=== PATIENT | female | born 1975 | race Caucasian/White ===

== ENCOUNTER 2017-05-23 13:42 | Outpatient (CLI) | payer OTHER ==
[2017-05-23 14:31] LABS: ADD UMIC YES; UR ASCORBIC ACID NEGATIVE (NEGATIVE); UR BACTERIA FEW /HPF (NONE SEEN); UR BILIRUBIN (Dip) NEGATIVE (NEGATIVE); UR BLOOD (Dip) 1+ mg/dL (NEGATIVE); UR CLARITY CLEAR (CLEAR); UR COLOR YELLOW (YELLOW); UR GLUCOSE (Dip) NEGATIVE (NEGATIVE); UR KETONES (Dip) NEGATIVE (NEGATIVE); UR LEUKOCYTE ESTERASE (Dip) NEGATIVE Leu/ul (NEGATIVE); UR NITRITE (Dip) NEGATIVE (NEGATIVE); UR RBC 1 /HPF (0-5); UR SPECIFIC GRAVITY (Dip) 1.005 (1.003-1.030); UR SQUAMOUS EPITHELIAL CELL FEW /HPF (FEW); UR TOTAL PROTEIN (Dip) NEGATIVE (NEGATIVE); UR UROBILINOGEN (Dip) NEGATIVE (NEGATIVE); UR WBC 0 /HPF (0-5)
[2017-05-23 16:34] LABS: ADD MAN DIFF? NO
[2017-05-23 16:38] LABS: WHITE BLOOD COUNT 10.8 10^3/ul (4.8-10.8)
[2017-05-23 16:38] LABS: BASOPHILS % 0.2 % (0.0-2.0); EOSINOPHILS # 0.1 10^3/ul (0.0-0.5); EOSINOPHILS % 0.5 % (0.0-7.0); HEMATOCRIT 38.4 % (37.0-47.0); HEMOGLOBIN 13.3 g/dl (12.0-16.0); LYMPHOCYTES # 1.3 10^3/ul (0.8-2.9); LYMPHOCYTES % 12.4 % (15.0-51.0); MEAN CORPUSCULAR HEMOGLOBIN 32.8 pg (29.0-33.0); MEAN CORPUSCULAR HGB CONC 34.6 g/dl (32.0-37.0); MEAN CORPUSCULAR VOLUME 94.6 fl (82.0-101.0); MEAN PLATELET VOLUME 9.5 fl (7.4-10.4); MONOCYTE # 0.6 10^3/ul (0.3-0.9); MONOCYTES % 5.6 % (0.0-11.0); NEUTROPHIL # 8.7 10^3/ul (1.6-7.5); NEUTROPHILS % 80.5 % (39.0-77.0); PLATELET COUNT 211 10^3/UL (140-415); RED BLOOD COUNT 4.06 10^6/ul (4.20-5.40); RED CELL DISTRIBUTION WIDTH 12.4 % (11.5-14.5)
== END 2017-05-23 17:25 | disposition home or self-care (01) ==
LOC: OBT 13:42 → L-D 13:43 → OBT 17:25
DX: O26.892 Other specified pregnancy related conditions, second trimester (principal); R10.9 Unspecified abdominal pain; O34.219 Maternal care for unspecified type scar from previous cesarean delivery; O09.523 Supervision of elderly multigravida, third trimester; Z3A.27 27 weeks gestation of pregnancy
CPT/HCPCS: 36415; 76817; 76818; 81001; 85025

== ENCOUNTER 2017-08-03 14:55 | Inpatient (IN) | payer OTHER ==
[2017-08-03 16:00] LABS: ADD MAN DIFF? NO
[2017-08-03 16:02] LABS: BASOPHILS % 0.2 % (0.0-2.0); EOSINOPHILS # 0.1 10^3/ul (0.0-0.5); EOSINOPHILS % 0.8 % (0.0-7.0); HEMATOCRIT 36.9 % (37.0-47.0); HEMOGLOBIN 13.1 g/dl (12.0-16.0); LYMPHOCYTES # 1.4 10^3/ul (0.8-2.9); LYMPHOCYTES % 16.4 % (15.0-51.0); MEAN CORPUSCULAR HEMOGLOBIN 32.8 pg (29.0-33.0); MEAN CORPUSCULAR HGB CONC 35.5 g/dl (32.0-37.0); MEAN CORPUSCULAR VOLUME 92.5 fl (82.0-101.0); MEAN PLATELET VOLUME 10.4 fl (7.4-10.4); MONOCYTE # 0.9 10^3/ul (0.3-0.9); MONOCYTES % 9.9 % (0.0-11.0); NEUTROPHIL # 6.2 10^3/ul (1.6-7.5); NEUTROPHILS % 71.8 % (39.0-77.0); PLATELET COUNT 186 10^3/UL (140-415); RED BLOOD COUNT 3.99 10^6/ul (4.20-5.40); RED CELL DISTRIBUTION WIDTH 12.5 % (11.5-14.5)
[2017-08-03 16:02] LABS: WHITE BLOOD COUNT 8.6 10^3/ul (4.8-10.8)
[2017-08-03 16:25] LABS: ADD UMIC YES; UR ASCORBIC ACID NEGATIVE (NEGATIVE); UR BACTERIA FEW /HPF (NONE SEEN); UR BILIRUBIN (Dip) NEGATIVE (NEGATIVE); UR BLOOD (Dip) 1+ mg/dL (NEGATIVE); UR CLARITY CLEAR (CLEAR); UR COLOR STRAW (YELLOW); UR GLUCOSE (Dip) NEGATIVE (NEGATIVE); UR KETONES (Dip) NEGATIVE (NEGATIVE); UR LEUKOCYTE ESTERASE (Dip) NEGATIVE Leu/ul (NEGATIVE); UR NITRITE (Dip) NEGATIVE (NEGATIVE); UR RBC 1 /HPF (0-5); UR SPECIFIC GRAVITY (Dip) 1.004 (1.003-1.030); UR SQUAMOUS EPITHELIAL CELL FEW /HPF (FEW); UR TOTAL PROTEIN (Dip) NEGATIVE (NEGATIVE); UR UROBILINOGEN (Dip) NEGATIVE (NEGATIVE); UR WBC 0 /HPF (0-5)
[2017-08-03 16:28] LABS: ALANINE AMINOTRANSFERASE 26 IU/L (13-69); ALBUMIN 3.2 g/dl (3.3-4.9); ALKALINE PHOSPHATASE 110 IU/L (42-121); ANION GAP 11 (8-16); ASPARTATE AMINO TRANSFERASE 24 IU/L (15-46); BLOOD UREA NITROGEN 11 mg/dl (7-20); CARBON DIOXIDE 25 mmol/L (21-31); CHLORIDE 105 mmol/L (97-110); CREATININE 0.54 mg/dl (0.44-1.00); GLUCOSE 84 mg/dl (70-220); POTASSIUM 3.8 mmol/L (3.5-5.1); SODIUM 137 mmol/L (135-144); TOTAL PROTEIN 6.4 g/dl (6.1-8.1); URIC ACID 3.7 mg/dl (3.1-7.9)
[2017-08-03] MEDS: LACTATED RINGER'S 1,000 ML IV ×3 (17:29→23:59)
[2017-08-03] MEDS: TERBUTALINE 1 MG/ML INJ SC (19:12)
[2017-08-03] MEDS: ACETAMINOPHEN 325 MG TAB PO (20:11)
[2017-08-03] MEDS ORDERED: OXYTOCIN 30 UNITS/LR 500 ML IV (23:00)
[2017-08-03] MEDS ORDERED: MISOPROSTOL 200 MCG TAB PR (23:00)
[2017-08-03] MEDS ORDERED: METHYLERGONOVINE 0.2 MG INJ IM (23:00)
[2017-08-03] MEDS ORDERED: CARBOPROST 250 MCG INJ IM (23:00)
[2017-08-04 00:05] LABS: INR 0.93; PROTIME 12.6 Sec (11.9-14.9)
[2017-08-04 00:06] LABS: PARTIAL THROMBOPLASTIN TIME 31.6 Sec (25.0-35.0)
[2017-08-04 00:39] LABS: HEPATITIS B SURFACE ANTIGEN NEGATIVE (NEGATIVE)
[2017-08-04] MEDS: ACETAMINOPHEN 325 MG TAB PO (04:08)
[2017-08-04] MEDS: LACTATED RINGER'S 1,000 ML IV ×2 (07:52→20:11)
[2017-08-04] MEDS ORDERED: CEFAZOLIN 2 GM/50 ML (PMX) 50 ML IV (09:00)
[2017-08-04] MEDS: AMPICILLIN 2 GM/NS (PMX) 100 ML IV (09:12)
[2017-08-04] MEDS: AMPICILLIN 1 GM/NS (PMX) 50 ML IV (13:06)
[2017-08-04] MEDS ORDERED: OXYTOCIN 30 UNITS/LR 500 ML IV ×2 (15:43→18:30)
[2017-08-04] MEDS ORDERED: EPHEDrine SULFATE 50 MG/5 ML SYG (15:43)
[2017-08-04] MEDS ORDERED: METOCLOPRAMIDE 10 MG INJ (15:44)
[2017-08-04] MEDS ORDERED: ONDANSETRON 4 MG INJ (15:44)
[2017-08-04] MEDS ORDERED: morphine SULFATE/PF (10 MG/10 ML) INJ (15:44)
[2017-08-04] MEDS ORDERED: OXYTOCIN 10 UNIT INJ (15:44)
[2017-08-04] MEDS: OXYTOCIN 30 UNITS/LR 500 ML IV (17:15)
[2017-08-04] MEDS ORDERED: ONDANSETRON 4 MG INJ IV (18:00)
[2017-08-04] MEDS ORDERED: NALOXONE (0.4 MG/ML) INJ IV (18:00)
[2017-08-04] MEDS: morphine SULFATE/PF (10 MG/10 ML) INJ SPINAL (18:00)
[2017-08-04] MEDS ORDERED: EPHEDrine SULFATE 50 MG/5 ML SYG IV (18:00)
[2017-08-04] MEDS ORDERED: morphine 2 MG INJ IV ×2 (18:00)
[2017-08-04] MEDS ORDERED: NA PHOSPHATE/BIPHOS 133 ML ENEMA PR (18:30)
[2017-08-04] MEDS ORDERED: CARBOPROST 250 MCG INJ IM (18:30)
[2017-08-04] MEDS ORDERED: MISOPROSTOL 200 MCG TAB PR (18:30)
[2017-08-04] MEDS ORDERED: LANOLIN 7 GM TUBE TOP (18:30)
[2017-08-04] MEDS ORDERED: METHYLERGONOVINE 0.2 MG INJ IM (18:30)
[2017-08-04 19:31] LABS: RAPID PLASMA REAGIN NONREACTIVE (NR)
[2017-08-04] MEDS: CEFAZOLIN 2 GM/50 ML (PMX) 50 ML IV (20:57)
[2017-08-04] MEDS: SENNA/DOCUSATE NA (8.6MG/50MG) TAB PO (20:57)
[2017-08-04] MEDS: IBUPROFEN 800 MG TAB PO (22:00)
[2017-08-04] MEDS: DIPHENHYDRAMINE 50 MG INJ IV (22:51)
[2017-08-04] MEDS: CLINDAMYCIN 300 MG CAP PO (23:53)
[2017-08-05] MEDS: KETOROLAC 30 MG INJ IV (01:36)
[2017-08-05] MEDS: LACTATED RINGER'S 1,000 ML IV ×3 (04:17→22:50)
[2017-08-05] MEDS: CEFAZOLIN 2 GM/50 ML (PMX) 50 ML IV ×2 (05:01→13:10)
[2017-08-05] MEDS: DIPHENHYDRAMINE 50 MG INJ IV (05:01)
[2017-08-05] MEDS: CLINDAMYCIN 300 MG CAP PO ×3 (05:54→17:38)
[2017-08-05] MEDS: IBUPROFEN 800 MG TAB PO ×3 (05:55→21:50)
[2017-08-05] MEDS: NACL 3% FOR INHALATION 15 ML NEBU NEB ×2 (08:13→16:52)
[2017-08-05] MEDS: SENNA/DOCUSATE NA (8.6MG/50MG) TAB PO ×2 (09:00→21:00)
[2017-08-05] MEDS: BISACODYL 10 MG SUPP PR (10:00)
[2017-08-05 10:42] LABS: ADD MAN DIFF? NO
[2017-08-05 10:46] LABS: BASOPHILS % 0.1 % (0.0-2.0); EOSINOPHILS % 0.4 % (0.0-7.0); HEMATOCRIT 36.1 % (37.0-47.0); HEMOGLOBIN 12.6 g/dl (12.0-16.0); LYMPHOCYTES % 9.7 % (15.0-51.0); MEAN CORPUSCULAR HEMOGLOBIN 33.1 pg (29.0-33.0); MEAN CORPUSCULAR HGB CONC 34.9 g/dl (32.0-37.0); MEAN CORPUSCULAR VOLUME 94.8 fl (82.0-101.0); MEAN PLATELET VOLUME 10.6 fl (7.4-10.4); MONOCYTE # 0.9 10^3/ul (0.3-0.9); NEUTROPHIL # 8.1 10^3/ul (1.6-7.5); NEUTROPHILS % 80.3 % (39.0-77.0); PLATELET COUNT 187 10^3/UL (140-415); RED BLOOD COUNT 3.81 10^6/ul (4.20-5.40); RED CELL DISTRIBUTION WIDTH 12.7 % (11.5-14.5)
[2017-08-05 11:05] LABS: ALANINE AMINOTRANSFERASE 24 IU/L (13-69); ALBUMIN 2.9 g/dl (3.3-4.9); ALBUMIN/GLOBULIN RATIO 0.96; ALKALINE PHOSPHATASE 94 IU/L (42-121); ANION GAP 13 (8-16); ASPARTATE AMINO TRANSFERASE 28 IU/L (15-46); BILIRUBIN,INDIRECT 0.4 mg/dl (0-1.1); BILIRUBIN,TOTAL 0.4 mg/dl (0.2-1.3); BLOOD UREA NITROGEN 6 mg/dl (7-20); CALCIUM 8.9 mg/dl (8.4-10.2); CARBON DIOXIDE 26 mmol/L (21-31); CHLORIDE 103 mmol/L (97-110); CREATININE 0.57 mg/dl (0.44-1.00); GLUCOSE 101 mg/dl (70-220); POTASSIUM 4.2 mmol/L (3.5-5.1); SODIUM 138 mmol/L (135-144); TOTAL PROTEIN 5.9 g/dl (6.1-8.1)
[2017-08-05] MEDS: HYDROCODONE/APAP (5/325) TAB PO (20:26)
[2017-08-05] MEDS: ISONIAZID 300 MG TAB PO (20:27)
[2017-08-05] MEDS: ETHAMBUTOL 100 MG TAB PO (20:28)
[2017-08-05] MEDS: RIFAMPIN 300 MG CAP PO (20:30)
[2017-08-05] MEDS: PYRAZINAMIDE 500 MG TAB PO (21:49)
[2017-08-05] MEDS: PYRIDOXINE 50 MG TAB PO (21:50)
[2017-08-06] MEDS: BISACODYL 10 MG SUPP PR (00:49)
[2017-08-06] MEDS: CLINDAMYCIN 300 MG CAP PO ×3 (00:49→11:56)
[2017-08-06] MEDS: LACTATED RINGER'S 1,000 ML IV (02:04)
[2017-08-06] MEDS: NACL 3% FOR INHALATION 15 ML NEBU NEB (03:42)
[2017-08-06] MEDS: IBUPROFEN 800 MG TAB PO ×3 (06:39→21:22)
[2017-08-06 07:27] LABS: ADD MAN DIFF? NO
[2017-08-06 07:36] LABS: BASOPHILS % 0.3 % (0.0-2.0); EOSINOPHILS # 0.2 10^3/ul (0.0-0.5); EOSINOPHILS % 1.5 % (0.0-7.0); HEMATOCRIT 35.4 % (37.0-47.0); HEMOGLOBIN 12.3 g/dl (12.0-16.0); LYMPHOCYTES # 1.3 10^3/ul (0.8-2.9); LYMPHOCYTES % 13.1 % (15.0-51.0); MEAN CORPUSCULAR HEMOGLOBIN 32.9 pg (29.0-33.0); MEAN CORPUSCULAR HGB CONC 34.7 g/dl (32.0-37.0); MEAN CORPUSCULAR VOLUME 94.7 fl (82.0-101.0); MEAN PLATELET VOLUME 10.4 fl (7.4-10.4); MONOCYTE # 1.1 10^3/ul (0.3-0.9); MONOCYTES % 10.8 % (0.0-11.0); NEUTROPHIL # 7.3 10^3/ul (1.6-7.5); NEUTROPHILS % 73.7 % (39.0-77.0); PLATELET COUNT 176 10^3/UL (140-415); RED BLOOD COUNT 3.74 10^6/ul (4.20-5.40); RED CELL DISTRIBUTION WIDTH 12.5 % (11.5-14.5)
[2017-08-06 08:07] LABS: ALANINE AMINOTRANSFERASE 20 IU/L (13-69); ALBUMIN 2.9 g/dl (3.3-4.9); ALBUMIN/GLOBULIN RATIO 0.93; ALKALINE PHOSPHATASE 91 IU/L (42-121); ANION GAP 12 (8-16); ASPARTATE AMINO TRANSFERASE 27 IU/L (15-46); BILIRUBIN,INDIRECT 0.8 mg/dl (0-1.1); BILIRUBIN,TOTAL 0.8 mg/dl (0.2-1.3); BLOOD UREA NITROGEN 9 mg/dl (7-20); CALCIUM 8.6 mg/dl (8.4-10.2); CARBON DIOXIDE 30 mmol/L (21-31); CHLORIDE 103 mmol/L (97-110); GLUCOSE 95 mg/dl (70-220); POTASSIUM 3.6 mmol/L (3.5-5.1); SODIUM 141 mmol/L (135-144)
[2017-08-06] MEDS: SENNA/DOCUSATE NA (8.6MG/50MG) TAB PO ×2 (09:00→21:23)
[2017-08-06] MEDS: ETHAMBUTOL 100 MG TAB PO (09:09)
[2017-08-06] MEDS: ISONIAZID 300 MG TAB PO (09:09)
[2017-08-06] MEDS: PYRAZINAMIDE 500 MG TAB PO (09:10)
[2017-08-06] MEDS: RIFAMPIN 300 MG CAP PO (09:10)
[2017-08-06] MEDS: PYRIDOXINE 50 MG TAB PO (09:10)
[2017-08-06 12:32] LABS: NIL 0.02 IU/mL; QUANTIFERON(R)-TB GOLD POSITIVE (NEGATIVE); TB-NIL 1.92 IU/mL
[2017-08-06] MEDS: OXYCODONE/ACETAMINOPHEN (5/325) TAB PO (15:45)
[2017-08-06] MEDS: VORICONAZOLE 200 MG TAB PO (21:23)
[2017-08-07] MEDS: OXYCODONE/ACETAMINOPHEN (5/325) TAB PO (00:12)
[2017-08-07] MEDS: LACTATED RINGER'S 1,000 ML IV (02:04)
[2017-08-07] MEDS: IBUPROFEN 800 MG TAB PO ×3 (06:26→21:32)
[2017-08-07] MEDS: DIPHTH/TET/ACEL PERTUSS (ADULT) 0.5 ML VIAL IM* (09:00)
[2017-08-07] MEDS: MEASLES,MUMPS,RUBELLA VACCINE INJ SC* (09:00)
[2017-08-07] MEDS: SENNA/DOCUSATE NA (8.6MG/50MG) TAB PO ×2 (09:00→21:00)
[2017-08-07] MEDS: ISONIAZID 300 MG TAB PO (13:24)
[2017-08-07] MEDS: ETHAMBUTOL 100 MG TAB PO (13:24)
[2017-08-07] MEDS: PYRAZINAMIDE 500 MG TAB PO (13:25)
[2017-08-07] MEDS: RIFAMPIN 300 MG CAP PO (13:25)
[2017-08-07] MEDS: PYRIDOXINE 50 MG TAB PO (13:26)
[2017-08-07] MEDS: NACL 3% FOR INHALATION 15 ML NEBU NEB (20:00)
[2017-08-07] MEDS: HYDROCODONE/APAP (5/325) TAB PO (21:32)
[2017-08-08] MEDS: IBUPROFEN 800 MG TAB PO ×3 (06:08→22:00)
[2017-08-08] MEDS: NACL 3% FOR INHALATION 15 ML NEBU NEB (08:00)
[2017-08-08] MEDS: RIFAMPIN 300 MG CAP PO (08:30)
[2017-08-08] MEDS: SENNA/DOCUSATE NA (8.6MG/50MG) TAB PO ×2 (08:30→21:08)
[2017-08-08] MEDS: ETHAMBUTOL 100 MG TAB PO (08:30)
[2017-08-08] MEDS: ISONIAZID 300 MG TAB PO (08:30)
[2017-08-08] MEDS: PYRIDOXINE 50 MG TAB PO (08:30)
[2017-08-08] MEDS: PYRAZINAMIDE 500 MG TAB PO (08:32)
[2017-08-08] MEDS: HYDROCODONE/APAP (5/325) TAB PO (23:55)
[2017-08-09] MEDS: IBUPROFEN 800 MG TAB PO ×2 (06:07→14:49)
[2017-08-09] MEDS: RIFAMPIN 300 MG CAP PO (09:08)
[2017-08-09] MEDS: SENNA/DOCUSATE NA (8.6MG/50MG) TAB PO (09:08)
[2017-08-09] MEDS: ETHAMBUTOL 100 MG TAB PO (09:09)
[2017-08-09] MEDS: ISONIAZID 300 MG TAB PO (09:09)
[2017-08-09] MEDS: PYRIDOXINE 50 MG TAB PO (09:10)
[2017-08-09] MEDS: PYRAZINAMIDE 500 MG TAB PO (09:33)
[2017-08-11 12:07] LABS: IMMUNOGLOBULIN E 26 kU/L (<OR=114)
== END 2017-08-09 18:55 | disposition home or self-care (01) | DRG 766 ==
LOC: OBT 14:55 → L-D 14:55 → PP1 08-04 17:01 → OBT 22:38 → L-D 22:38
PROC: 10D00Z1 Extraction of Products of Conception, Low, Open Approach (ICD-10-PCS; principal; 2017-08-04 15:45)
PROC: 3E033VJ Introduction of Other Hormone into Peripheral Vein, Percutaneous Approach (ICD-10-PCS; 2017-08-04 15:45)
DX: O34.211 Maternal care for low transverse scar from previous cesarean delivery (principal); E66.9 Obesity, unspecified; J47.9 Bronchiectasis, uncomplicated; O99.214 Obesity complicating childbirth; Z68.37 Body mass index [BMI] 37.0-37.9, adult; Z37.0 Single live birth; Z3A.37 37 weeks gestation of pregnancy
CPT/HCPCS: 36415; 71045; 71046; 71250; 76818; 80053; 81001; 82785; 82787; 84560; 85025; 85610; 85730; 86480; 86592; 86606; 86850; 86900; 86901; 87070; 87116; 87340; 87556; 88307; 89220; 94640; 94664; 94760; 94772; 96360; 96361; 96372; 99464